=== PATIENT | female | born 1970 | race African-American/Black ===

== ENCOUNTER 2020-03-21 17:22 | Emergency (ER) | payer SELFPAY ==
[~2020-03-21] VITALS: Ht 162.6 cm; Wt 69.0 kg
[2020-03-21 17:57] LABS: BASOPHILS % 0.4 % (0.0-2.0); EOSINOPHILS % 2.7 % (0.0-5.0); HEMATOCRIT. 37.8 % (36.0-48.0); HEMOGLOBIN. 12.3 g/dL (12.0-16.0); MEAN CORPUSCULAR VOLUME 83.3 fL (81.0-99.0); MEAN PLATELET VOLUME 7.2 fl (7.4-10.4); MONOCYTES % 8.7 % (2.0-8.0); NEUTROPHILS % 51.2 % (40.0-76.0); PLATELET 192 x1000/uL (130-400); RED BLOOD CELL COUNT 4.54 mill/uL (4.2-5.4); RED CELL DISTRIBUTION WIDTH 14.9 % (11.6-14.6)
[2020-03-21 18:02] LABS: CHLORIDE 108 mEq/L (98-107)
[2020-03-21 18:04] LABS: PROTHROMBIN TIME 10.9 sec (9.6-11.0)
[2020-03-21 18:27] LABS: HCG SCREEN NEGATIVE
[2020-03-21 18:36] LABS: CLARITY URINE CLEAR (CLEAR); COLOR URINE YELLOW (YELLOW); KETONES URINE NEGATIVE (NEGATIVE); LEUKOCYTE ESTERASE URINE TRACE (NEGATIVE); NITRITE URINE NEGATIVE (NEGATIVE); OCCULT BLOOD URINE NEGATIVE (NEGATIVE); PH URINE 6.5 (4.5-8.0); PROTEIN URINE NEGATIVE (NEGATIVE); SPECIFIC GRAVITY URINE 1.023 (1.005-1.030)
[2020-03-21] MEDS ORDERED: NITROFURANTOIN 100MG M/M CAPSULE PO ONE (20:15)
[2020-03-21 21:02] VITALS: BP 130/89
== END 2020-03-21 21:15 | disposition home or self-care (01) ==
LOC: ER 17:22
DX: N39.0 Urinary tract infection, site not specified (principal); E11.9 Type 2 diabetes mellitus without complications; Z59.0 Homelessness
CPT/HCPCS: 36415; 74177; 80053; 81003; 81025; 84703; 85025; 99285